=== PATIENT | female | born 1995 | race Caucasian/White ===

== ENCOUNTER → 2020-03-13 14:08 | Observation (INO) ==
[~2020-03-13 14:08] MED LIST: Betamethasone Acet/SodPhos 30 MG/5 ML VIAL IM SCH; Famotidine 20 MG TABLET PO SCH
== END | disposition short-term general hospital (02) ==
LOC: 1NENULAB
PROVIDERS: ADMIT Student in an Organized Health Care Education/Training Program; ATTEND Student in an Organized Health Care Education/Training Program

== ENCOUNTER 2020-05-11 08:09 | Inpatient (IN) ==
[2020-05-11] MEDS ORDERED: Ondansetron 4 MG/2 ML VIAL IVP PRN (09:29)
[2020-05-11] MEDS: Ringers Solution, Lactated 1,000 ML IVC SCH (09:58)
[2020-05-11 10:49] LABS: Eosinophils % 0.1 %; Red Cell Distribution Width 13.1 % (11.5-14.5)
[2020-05-11 10:51] LABS: Basophils % 0.2 %; Hematocrit 37.6 % (35.3-44.9); Hemoglobin 12.6 g/dL (11.5-15.4); Immature Granulocytes % 0.9 % (0-4); Immature Platelets 36.7 % (1.1-6.1); Lymphocytes # 1.6 K/mcL (0.6-4.6); Lymphocytes % 10.5 %; Mean Corpuscular HGB Conc 33.5 g/dL (31.6-35.5); Mean Corpuscular Hemoglobin 31.2 pg (28.0-33.3); Mean Corpuscular Volume 93.1 fL (83.0-100.0); Monocytes # 0.8 K/mcL (0.0-1.3); Monocytes % 5.4 %; Neutrophils # 12.7 K/mcL (1.6-8.9); Red Blood Count 4.04 M/mcL (3.82-4.97); Segmented Neutrophils % 82.9 %; White Blood Count 15.3 K/mcL (4.3-11.1)
[2020-05-11 11:06] LABS: Platelet Count 54 K/mcL (140-400)
[2020-05-11 11:09] LABS: Alanine Aminotransferase 131 Units/L (7-52); Aspartate Amino Transferase 137 Units/L (13-39); BUN/Creatinine Ratio 13 (6-26); Blood Urea Nitrogen 7 mg/dL (6-20); Lactate Dehydrogenase 413 Units/L (140-271); Uric Acid 6.7 mg/dL (2.3-7.6); eGFR For African Americans > 60 (> 60); eGFR For Non-African Americans > 60 (> 60)
[2020-05-11] MEDS ORDERED: 0.9 % Sodium Chloride 250 ML IVC SCH (12:30)
[2020-05-11] MEDS: miSOPROStoL 25 MCG TABLET PO PRN ×3 (12:38→21:52)
[2020-05-11 12:41] LABS: Protein/Creatinine Ratio,Urine 0.5 mg/mg (0.00-0.20)
[2020-05-11] MEDS ORDERED: Calcium Gluconate 1,000 MG/10 ML VIAL IVP PRN (13:59)
[2020-05-11] MEDS: Vancomycin 1,750 MG/517.5 ML IV.SOLN IVPB SCH ×2 (14:22→23:50)
[2020-05-11] MEDS: Magnesium Sulf 20 gm/SW 500mL 20 GM/500 ML IV.SOLN IVC SCH ×2 (15:05→23:53)
[2020-05-12] MEDS: miSOPROStoL 25 MCG TABLET PO PRN (02:35)
[2020-05-12 04:32] LABS: Hematocrit 36.1 % (35.3-44.9); Mean Corpuscular Volume 92.6 fL (83.0-100.0); Red Cell Distribution Width 13.3 % (11.5-14.5)
[2020-05-12 04:34] LABS: Basophils # 0.1 K/mcL (0.0-0.2); Basophils % 0.5 %; Eosinophils # 0.1 K/mcL (0.0-0.6); Eosinophils % 0.4 %; Hemoglobin 12.2 g/dL (11.5-15.4); Immature Granulocytes % 1.1 % (0-4); Immature Platelets 27.6 % (1.1-6.1); Lymphocytes # 1.6 K/mcL (0.6-4.6); Lymphocytes % 10.9 %; Mean Corpuscular HGB Conc 33.8 g/dL (31.6-35.5); Mean Corpuscular Hemoglobin 31.3 pg (28.0-33.3); Monocytes # 0.7 K/mcL (0.0-1.3); Monocytes % 4.6 %; Neutrophils # 11.8 K/mcL (1.6-8.9); Nucleated Red Blood Cells 0.1 /100 WBC (0); Segmented Neutrophils % 82.5 %; White Blood Count 14.3 K/mcL (4.3-11.1)
[2020-05-12 04:35] LABS: Platelet Count 55 K/mcL (140-400)
[2020-05-12 04:52] LABS: Alanine Aminotransferase 114 Units/L (7-52); Aspartate Amino Transferase 92 Units/L (13-39); BUN/Creatinine Ratio 11 (6-26); Blood Urea Nitrogen 6 mg/dL (6-20); Lactate Dehydrogenase 442 Units/L (140-271); eGFR For African Americans > 60 (> 60); eGFR For Non-African Americans > 60 (> 60)
[2020-05-12] MEDS: Ringers Solution, Lactated 1,000 ML IVC SCH (06:08)
[2020-05-12] MEDS: Oxytocin 20 units/ LR 1000 mL 20 UNIT/1,000 ML BAG IVC SCH ×4 (06:25→20:45)
[2020-05-12] MEDS: Vancomycin 1,750 MG/517.5 ML IV.SOLN IVPB SCH (07:51)
[2020-05-12 08:44] LABS: Amphetamine Screen,Urine Negative ng/mL (Cutoff=1000); Barbiturate Screen,Urine Negative ng/mL (Cutoff=200); Benzodiazepines Screen,Urine Negative ng/mL (Cutoff=200); Cannabinoid Screen,Urine Negative ng/mL (Cutoff = 50); Cocaine Screen,Urine Negative ng/mL (Cutoff= 300); Opiate Screen,Urine Negative ng/mL (Cutoff=300); Phencyclidine Screen,Urine Negative ng/mL (Cutoff=25)
[2020-05-12] MEDS ORDERED: Gentamicin 350 MG in 0.9 % Sodium Chloride 100 ML IVPB ONE (09:11)
[2020-05-12] MEDS ORDERED: Famotidine 20 MG/2 ML VIAL IVP ONE (09:11)
[2020-05-12] MEDS ORDERED: Metoclopramide 10 MG/2 ML VIAL IVP ONE (09:11)
[2020-05-12] MEDS ORDERED: Clindamycin 900 MG/50 ML 900 MG/50 ML IV.SOLN IVPB ONE (09:11)
[2020-05-12] MEDS ORDERED: Ringers Solution, Lactated 1,000 ML IVC SCH (09:15)
[2020-05-12] MEDS ORDERED: Magnesium Sulf 20 gm/SW 500mL 20 GM/500 ML IV.SOLN IVC SCH (09:15)
[2020-05-12] MEDS ORDERED: Calcium Gluconate 1,000 MG/10 ML VIAL IVP PRN ×2 (09:15→14:57)
[2020-05-12] MEDS ORDERED: Lidocaine -MPF 2% 5 ML VIAL ONE (09:53)
[2020-05-12] MEDS ORDERED: Dexamethasone 4 MG/ML VIAL ONE (09:54)
[2020-05-12] MEDS ORDERED: Ondansetron 4 MG/2 ML VIAL ONE (09:54)
[2020-05-12] MEDS ORDERED: *HR* FentaNYL (PF) 100 MCG/2 ML VIAL ONE (09:55)
[2020-05-12] MEDS ORDERED: *HR* Succinylcholine 200 MG/10 ML VIAL IVP ONE (09:56)
[2020-05-12 10:22] LABS: Adenovirus Not Detected (Not Detect); Bordetella Pertussis Not Detected (Not Detect); Coronavirus 229E Not Detected (Not Detect); Coronavirus HKU1 Not Detected (Not Detect); Coronavirus NL63 Not Detected (Not Detect); Coronavirus OC43 Not Detected (Not Detect); Human Metapneumovirus Not Detected (Not Detect); Human Rhinovirus/Enterovirus Not Detected (Not Detect); Influenza A Subtype 2009 H1 Not Detected (Not Detect); Influenza B Not Detected (Not Detect); Parainfluenza Virus 1 Not Detected (Not Detect); Parainfluenza Virus 2 Not Detected (Not Detect); Parainfluenza Virus 3 Not Detected (Not Detect); Parainfluenza Virus 4 Not Detected (Not Detect); Respiratory Syncytial Virus Not Detected (Not Detect); SARS-CoV-2 Not Detected (Not Detect)
[2020-05-12 10:23] LABS: Chlamydophila pneumoniae Not Detected (Not Detect); Mycoplasma pneumoniae Not Detected (Not Detect)
[2020-05-12] MEDS ORDERED: *HR* Phenylephrine 10 MG/ML VIAL ONE ×2 (10:27)
[2020-05-12] MEDS ORDERED: *HR* Oxytocin 10 UNIT/ML VIAL IM ONE (11:17)
[2020-05-12] MEDS ORDERED: *HR* HYDROMORPHONE 2 MG/ML VIAL ONE ×2 (11:23→11:36)
[2020-05-12] MEDS ORDERED: *HR* HYDROmorphone 20 MG/20 ML PCA IVC PRN ×2 (12:59→14:57)
[2020-05-12] MEDS: Magnesium Sulf 20 gm/SW 500mL 20 GM/500 ML IV.SOLN IVC SCH ×2 (14:35→20:44)
[2020-05-12] MEDS ORDERED: Sennosides 8.6 MG TABLET PO PRN (14:57)
[2020-05-12] MEDS ORDERED: Metoclopramide 10 MG/2 ML VIAL IVP PRN (14:57)
[2020-05-12] MEDS ORDERED: Naloxone 0.4 MG/ML INJ IVP PRN (14:57)
[2020-05-12] MEDS ORDERED: Simethicone 80 MG TAB.CHEW PO PRN (14:57)
[2020-05-12] MEDS ORDERED: Ondansetron 4 MG/2 ML VIAL IVP PRN (14:57)
[2020-05-12] MEDS ORDERED: miSOPROStoL 100 MCG TABLET RC ONE (19:09)
[2020-05-12 20:04] LABS: Hemoglobin 11.1 g/dL (11.5-15.4); Monocytes % 3.6 %
[2020-05-12 20:06] LABS: Basophils % 0.1 %; Hematocrit 32.6 % (35.3-44.9); Immature Granulocytes % 0.8 % (0-4); Immature Platelets 37.4 % (1.1-6.1); Lymphocytes % 5.3 %; Mean Corpuscular Hemoglobin 31.6 pg (28.0-33.3); Mean Corpuscular Volume 92.9 fL (83.0-100.0); Monocytes # 0.7 K/mcL (0.0-1.3); Neutrophils # 16.2 K/mcL (1.6-8.9); Red Blood Count 3.51 M/mcL (3.82-4.97); Red Cell Distribution Width 13.2 % (11.5-14.5); Segmented Neutrophils % 90.2 %
[2020-05-12 20:14] LABS: Alanine Aminotransferase 82 Units/L (7-52); Aspartate Amino Transferase 51 Units/L (13-39); BUN/Creatinine Ratio 13 (6-26); Blood Urea Nitrogen 7 mg/dL (6-20); Lactate Dehydrogenase 358 Units/L (140-271); Uric Acid 7.2 mg/dL (2.3-7.6); eGFR For African Americans > 60 (> 60); eGFR For Non-African Americans > 60 (> 60)
[2020-05-12 20:19] LABS: Platelet Count 47 K/mcL (140-400)
[2020-05-12 20:21] LABS: Large Platelets Present (Not Present); Platelet Estimate Decreased (Normal); Polychromasia 1+ (Not Present); Toxic Granulation Present (Not Present); Toxic Vacuolation Present (Not Present)
[2020-05-13 08:13] LABS: Basophils % 0.3 %; Eosinophils % 0.1 %; Hematocrit 32.1 % (35.3-44.9); Hemoglobin 10.5 g/dL (11.5-15.4); Immature Granulocytes % 0.8 % (0-4); Immature Platelets 34.1 % (1.1-6.1); Lymphocytes # 1.9 K/mcL (0.6-4.6); Lymphocytes % 12.8 %; Mean Corpuscular HGB Conc 32.7 g/dL (31.6-35.5); Mean Corpuscular Hemoglobin 31.3 pg (28.0-33.3); Mean Corpuscular Volume 95.5 fL (83.0-100.0); Monocytes # 0.9 K/mcL (0.0-1.3); Monocytes % 5.9 %; Neutrophils # 11.7 K/mcL (1.6-8.9); Red Blood Count 3.36 M/mcL (3.82-4.97); Red Cell Distribution Width 13.4 % (11.5-14.5); Segmented Neutrophils % 80.1 %; White Blood Count 14.6 K/mcL (4.3-11.1)
[2020-05-13 08:15] LABS: Platelet Count 62 K/mcL (140-400)
[2020-05-13] MEDS: Prenatal Vit/FA 1 EACH TABLET PO SCH (08:21)
[2020-05-13 08:30] LABS: Aspartate Amino Transferase 37 Units/L (13-39); BUN/Creatinine Ratio 11 (6-26); Blood Urea Nitrogen 7 mg/dL (6-20); eGFR For African Americans > 60 (> 60); eGFR For Non-African Americans > 60 (> 60)
[2020-05-13] MEDS ORDERED: NON-FORMULARY MEDICATION 1 EACH EACH (Prenatal Vits96/Iron Fum/Folic [Prenatal Tablet] 1 E PO SCH (09:00)
[2020-05-13] MEDS: Magnesium Sulf 20 gm/SW 500mL 20 GM/500 ML IV.SOLN IVC SCH (11:15)
[2020-05-13] MEDS: *HR* OxyCODONE Immed Rel 5 MG TABLET PO PRN ×2 (12:40→19:00)
[2020-05-14] MEDS: *HR* OxyCODONE Immed Rel 5 MG TABLET PO PRN ×3 (01:09→17:24)
[2020-05-14] MEDS: Prenatal Vit/FA 1 EACH TABLET PO SCH (09:37)
[2020-05-14 11:15] LABS: Eosinophils % 0.6 %; Mean Corpuscular HGB Conc 33.1 g/dL (31.6-35.5)
[2020-05-14 11:17] LABS: Basophils # 0.1 K/mcL (0.0-0.2); Basophils % 0.5 %; Eosinophils # 0.1 K/mcL (0.0-0.6); Hematocrit 31.7 % (35.3-44.9); Hemoglobin 10.5 g/dL (11.5-15.4); Immature Platelets 21.3 % (1.1-6.1); Lymphocytes # 1.6 K/mcL (0.6-4.6); Lymphocytes % 12.9 %; Mean Corpuscular Hemoglobin 32.5 pg (28.0-33.3); Mean Corpuscular Volume 98.1 fL (83.0-100.0); Monocytes # 0.8 K/mcL (0.0-1.3); Monocytes % 6.2 %; Neutrophils # 9.7 K/mcL (1.6-8.9); Red Blood Count 3.23 M/mcL (3.82-4.97); Red Cell Distribution Width 13.5 % (11.5-14.5); Segmented Neutrophils % 77.8 %; White Blood Count 12.5 K/mcL (4.3-11.1)
[2020-05-14 11:24] LABS: Platelet Count 80 K/mcL (140-400)
[2020-05-14 11:35] LABS: Alanine Aminotransferase 42 Units/L (7-52); Albumin 3.2 g/dL (3.5-5.7); Albumin/Globulin Ratio 1.1 (1.1-2.2); Alkaline Phosphatase 76 Units/L (34-104); Aspartate Amino Transferase 21 Units/L (13-39); BUN/Creatinine Ratio 13 (6-26); Bilirubin,Total 0.3 mg/dL (0.3-1.0); Blood Urea Nitrogen 9 mg/dL (6-20); Calcium 8.5 mg/dL (8.6-10.3); Carbon Dioxide 26 mEq/L (23-29); Chloride 104 mEq/L (98-107); Globulin 2.8 g/dL (2.4-3.5); Glucose 74 mg/dL (70-105); Lactate Dehydrogenase 316 Units/L (140-271); Osmolality,Calculated 281 (280-300); Sodium 137 mEq/L (136-145); Uric Acid 6.8 mg/dL (2.3-7.6); eGFR For African Americans > 60 (> 60); eGFR For Non-African Americans > 60 (> 60)
[2020-05-15] MEDS ORDERED: Lanolin 7 G OINT...G. TP PRN (00:40)
[2020-05-15] MEDS: Prenatal Vit/FA 1 EACH TABLET PO SCH (14:43)
[2020-05-15] MEDS: *HR* OxyCODONE Immed Rel 5 MG TABLET PO PRN (14:46)
[2020-05-16] MEDS: *HR* OxyCODONE Immed Rel 5 MG TABLET PO PRN (00:35)
[2020-05-16] MEDS: Prenatal Vit/FA 1 EACH TABLET PO SCH (07:47)
[2020-05-16] MEDS ORDERED: NIFEdipine XL (24 HR) 60 MG TAB.ER.24 PO SCH (09:00)
[2020-05-16 16:26] VITALS: BP 121/85
== END 2020-05-16 18:45 | disposition home or self-care (01) | DRG 787 ==
LOC: 1NENULAB → OBSVTOIN 08:09 → 1NENULAB 11:18 → 1NENUOBS 05-12 14:37
PROVIDERS: ADMIT Student in an Organized Health Care Education/Training Program; ATTEND Student in an Organized Health Care Education/Training Program